=== PATIENT | female | born 1965 | race Two or more races ===

== ENCOUNTER 2017-06-09 20:07 | Emergency (ER) | payer BC, OTHER ==
[~2017-06-09] VITALS: Ht 172.7 cm; Wt 64.4 kg
--- NOTE | 2017-06-09 20:25 | NUR ---
Pt states her B/P has been high today, had BEDOLLA (gone now after taking Alieve). Also c/o anxiety. Pt denies CP, SOB, dizziness, n/v, no other complaints, no distress noted.
[2017-06-09] MEDS ORDERED: LORAZEPAM 0.5 MG TABLET PO ONE (21:00)
[2017-06-09 21:10] LABS: *BILIRUBIN,URIN NEGATIVE (NEGATIVE); *BLOOD, URINE Trace-intact (NEGATIVE); *CLARITY,URINE CLEAR (CLEAR); *COLOR,URINE LIGHT YELLOW (YELLOW); *KETONES,URINE 1+ (NEGATIVE); *PROTEIN,URINE NEGATIVE (NEGATIVE); *UROBILINOGEN,URINE 0.2 E.U./dl (NORMAL); LEUKOCYTE ESTERASE ,URINE TRACE (NEGATIVE); NITRITE, URINE NEGATIVE (NEGATIVE); PH,URINE 6.5 (5.0-8.0); UGLUCOSE NEGATIVE (NEGATIVE)
[2017-06-09] MEDS ORDERED: LORAZEPAM 1 MG TABLET ONE (21:10)
[2017-06-09 21:19] LABS: SQUAMOUS EPITHELIAL CELL,UR FEW /HPF (NONE SEEN)
--- NOTE | 2017-06-09 22:31 | NUR ---
Gave pt RX and d/c instructions, verbalized understanding, family translated.
== END 2017-06-09 22:34 | disposition home or self-care (01) ==
LOC: ER 20:09
DX: F41.9 Anxiety disorder, unspecified (principal); I10 Essential (primary) hypertension; Z88.1 Allergy status to other antibiotic agents
CPT/HCPCS: 81001; 93005; 99285; A4663